=== PATIENT | female | born 1995 ===

== ENCOUNTER 2018-12-05 20:41 | Emergency (ER) | payer BC ==
[2018-12-05 21:03] VITALS: BP 125/82; PULSE 63; RESP 18; TEMP 99.2; O2SAT 99
[2018-12-05 21:24] LABS: SQUAMOUS EPITHIAL 1 /hpf (0-5); URINE BACTERIA RARE (<OCC); URINE CALCIUM OXALATE CRYSTALS OCC /hpf (<OCC); WBC CLUMPS MANY /hpf
[2018-12-05 21:39] LABS: URINE BILIRUBIN SMALL (NEGATIVE); URINE BLOOD MODERATE (NEGATIVE); URINE CLARITY HAZY (Clear); URINE COLOR YELLOW (YELLOW); URINE GLUCOSE (UA) NEGATIVE (Normal); URINE PROTEIN 1+ mg/dL (NEGATIVE); URINE UROBILINOGEN 0.2 mg/dL (0.2-1.0)
[2018-12-05 21:40] LABS: URINE LEUKOCYTE ESTERASE MODERATE Leu/uL (Negative)
--- NOTE | 2018-12-05 22:28 | C.PDOC ---
History Of Present Illness 23 year old female presents to the ED c/o dysuria for the past 6 days. Patient reports no improvement to symptoms which prompted the visit to the ED. Patient denies fever, chills, nausea, vomit diarrhea, abdominal pain, back pain. Time Seen by Provider: 12/05/18 21:38 Chief Complaint (Nursing): Female Genitourinary History Per: Patient History/Exam Limitations: no limitations Onset/Duration Of Symptoms: Days (6) Current Symptoms Are (Timing): Still Present Quality Of Discomfort: "Pain" Associated Symptoms: Urinary Symptoms. denies: Nausea, Vomiting, Diarrhea Recent travel outside of the [place]: No Additional History Per: Patient Abnormal Vaginal Bleeding: No Past Medical History Reviewed: Historical Data, Nursing Documentation, Vital Signs Vital Signs: Last Vital Signs Temp 99.2 F 12/05/18 21:01 Pulse 63 12/05/18 21:01 Resp 18 12/05/18 21:01 BP 125/82 12/05/18 21:01 Pulse Ox 99 12/05/18 21:01 - Medical History PMH: No Chronic Diseases Surgical History: No Surg Hx Family History: States: Unknown Family Hx - Social History Hx Alcohol Use: Yes Hx Substance Use: No - Immunization History Hx Tetanus Toxoid Vaccination: No Hx Influenza Vaccination: No Hx Pneumococcal Vaccination: No Review Of Systems Constitutional: Negative for: Fever, Chills Respiratory: Negative for: Cough, Shortness of Breath Gastrointestinal: Negative for: Nausea, Vomiting, Abdominal Pain, Diarrhea Genitourinary: Positive for: Dysuria. Negative for: Hematuria Musculoskeletal: Negative for: Back Pain Skin: Negative for: Rash Physical Exam - Physical Exam Appears: Non-toxic, No Acute Distress Skin: Normal Color, Warm, Dry Head: Atraumatic, Normacephalic Eye(s): bilateral: Normal Inspection Neck: Normal ROM, Supple Chest: Symmetrical Cardiovascular: Rhythm Regular Respiratory: Normal Breath Sounds, No Rales, No Rhonchi, No Wheezing Gastrointestinal/Abdominal: Soft, No Tenderness, No Guarding, No Rebound Back: No CVA Tenderness Pelvic: Other (deferred) Extremity: Normal ROM Neurological/Psych: Oriented x3, Normal Speech, Normal Cognition Gait: Steady ED Course And Treatment - Laboratory Results Lab Results: Urine Color Yellow (YELLOW) 12/05/18 21:12 Urine Clarity Hazy (Clear) 12/05/18 21:12 Urine pH 6.0 (5.0-8.0) 12/05/18 21:12 Ur Specific Pettus 1.030 (1.003-1.030) 12/05/18 21:12 Urine Protein 1+ mg/dL (NEGATIVE) H 12/05/18 21:12 Urine Glucose (UA) Negative mg/dL (Normal) 12/05/18 21:12 Urine Ketones Trace mg/dL (NEGATIVE) 12/05/18 21:12 Urine Blood Moderate (NEGATIVE) 12/05/18 21:12 Urine Nitrate Positive (NEGATIVE) H 12/05/18 21:12 Urine Bilirubin Small (NEGATIVE) 12/05/18 21:12 Urine Urobilinogen 0.2 mg/dL (0.2-1.0) 12/05/18 21:12 Ur Leukocyte Esterase Moderate Sherlyn/uL (Negative) 12/05/18 21:12 Urine WBC (Auto) 358 /hpf (0-5) H 12/05/18 21:12 Urine RBC (Auto) 11 /hpf (0-3) H 12/05/18 21:12 Urine WBC Clumps (Auto) Many /hpf (NONE) H 12/05/18 21:12 Ur Squamous Epith Cells 1 /hpf (0-5) 12/05/18 21:12 Calcium Oxalate Crystal Occ /hpf (<OCC) H 12/05/18 21:12 Urine Bacteria Rare (<OCC) 12/05/18 21:12 O2 Sat by Pulse Oximetry: 99 (ON RA) Pulse Ox Interpretation: Normal Progress Note: Plan: - UA. - Urine culture. - Macrobid 100 mg PO. - Pyridium 100 mg PO. UA showed UTI. Patient given first dose of antibiotics in the ED, prescription to take at home. Patient advised to follow up with PMD and return precautions discussed. Disposition - Disposition Disposition: HOME/ ROUTINE Disposition Time: 22:25 Condition: STABLE Additional Instructions: Please follow up with PMD Take medications as directed Increase fluids Return to ER if worse Prescriptions: Nitrofurantoin Macrocrystals [Macrobid] 1 cap PO BID #14 cap Phenazopyridine HCl [Pyridium] 100 mg PO TID #6 tab Instructions: Urinary Tract Infection, Adult (DC) Forms: [employer] ([place]) - Clinical Impression Clinical Impression: Urinary tract infection - PA / CEMETERY WARDEN / Resident Statement MD/DO has reviewed & agrees with the documentation as recorded. - Scribe Statement The provider has reviewed the documentation as recorded by the Scribe Corby Cornejo All medical record entries made by the Jazzibe were at my direction and personally dictated by me. I have reviewed the chart and agree that the record accurately reflects my personal performance of the history, physical exam, m edical decision making, and the department course for this patient. I have also personally directed, reviewed, and agree with the discharge instructions and disposition.
== END 2018-12-05 22:32 | disposition home or self-care (01) ==
LOC: C.ER 20:41
DX: N39.0 Urinary tract infection, site not specified (principal)